=== PATIENT | male | born 1960 | race Caucasian/White ===

== ENCOUNTER 2019-12-15 15:59 | Emergency (ER) | payer MEDICAID ==
[~2019-12-15] VITALS: Ht 170.2 cm; Wt 70.0 kg
[2019-12-15 16:57] VITALS: BP 118/78
--- NOTE | 2019-12-15 17:14 | NUR ---
Patient seen and assessed by provider.
== END 2019-12-15 17:15 | disposition home or self-care (01) ==
LOC: ER 16:00
DX: F15.10 Other stimulant abuse, uncomplicated (principal)
CPT/HCPCS: 99281